=== PATIENT | male | born 1955 | race African-American/Black ===

== ENCOUNTER 2019-01-01 15:09 | Emergency (ER) | payer BC ==
[~2019-01-01] VITALS: Ht 177.8 cm; Wt 88.0 kg
[~2019-01-01 15:09] MED LIST: AMLO5TAB88; METO-396
[2019-01-01] MEDS ORDERED: SODIUM CHLORIDE 0.9% 1,000 ML IV ONE ×3 (20:20→20:30)
[2019-01-01 21:03] LABS: BASOPHILS % 0.7 % (0.0-2.0); EOSINOPHILS % 3.9 % (0.0-5.0); HEMATOCRIT. 44.8 % (42.0-52.0); HEMOGLOBIN. 15.3 g/dL (14.0-18.0); LYMPHOCYTES % 27.4 % (20.0-50.0); MEAN CORPUSCULAR HEMOGLOBIN 30.2 pg (28.0-32.0); MEAN CORPUSCULAR VOLUME 88.2 fL (80.0-94.0); PLATELET 349 x1000/uL (130-400); RED BLOOD CELL COUNT 5.07 mill/uL (4.7-6.1); RED CELL DISTRIBUTION WIDTH 13.1 % (11.6-14.6)
[2019-01-01 21:05] LABS: CHLORIDE 95 mEq/L (98-107)
[2019-01-01] MEDS ORDERED: METFORMIN HCL 500MG TABLET PO ONE (21:15)
[2019-01-01 22:39] VITALS: BP 156/67
== END 2019-01-01 23:33 | disposition home or self-care (01) ==
LOC: ER 15:09
DX: E11.65 Type 2 diabetes mellitus with hyperglycemia (principal); Z79.84 Long term (current) use of oral hypoglycemic drugs
CPT/HCPCS: 36415; 80053; 82962; 83036; 85025; 96360; 96361; 99283; J7030; Z7610

== ENCOUNTER → 2019-05-14 | Outpatient (CLI) | payer BC ==
[2019-05-14 09:43] LABS: CHLORIDE 102 mEq/L (98-107)
== END | disposition home or self-care (01) ==
LOC: LAB 08:41
PROVIDERS: ATTEND Internal Medicine
DX: Z11.59 Encounter for screening for other viral diseases (principal); Z12.11 Encounter for screening for malignant neoplasm of colon; E11.69 Type 2 diabetes mellitus with other specified complication; I10 Essential (primary) hypertension
CPT/HCPCS: 36415; 83036; 86803

== ENCOUNTER 2019-08-06 19:25 | Inpatient (IN) | payer BC ==
[~2019-08-06] VITALS: Ht 177.8 cm; Wt 93.0 kg
[2019-08-06 21:47] LABS: BASOPHILS % 0.9 % (0.0-2.0); EOSINOPHILS % 11.1 % (0.0-5.0); HEMATOCRIT. 38.8 % (42.0-52.0); HEMOGLOBIN. 12.9 g/dL (14.0-18.0); LYMPHOCYTES % 29.1 % (20.0-50.0); MEAN CORPUSCULAR HEMOGLOBIN 29.8 pg (28.0-32.0); MEAN CORPUSCULAR VOLUME 89.7 fL (80.0-94.0); MEAN PLATELET VOLUME 8.2 fl (7.4-10.4); MONOCYTES % 11.2 % (2.0-8.0); NEUTROPHILS % 47.7 % (40.0-76.0); PLATELET 277 x1000/uL (130-400); RED BLOOD CELL COUNT 4.32 mill/uL (4.7-6.1); RED CELL DISTRIBUTION WIDTH 15.3 % (11.6-14.6)
[2019-08-06 21:51] LABS: CHLORIDE 110 mEq/L (98-107)
[2019-08-06] MEDS ORDERED: MAGNESIUM/ALUMINUM HYDROXIDE/SIMETHICONE 30ML UDC PO PRN (23:00)
[2019-08-06] MEDS ORDERED: NITROGLYCERIN 0.4MG TABLET SL SL PRN (23:00)
[2019-08-06] MEDS ORDERED: GUAIFENESIN 200MG/10ML SUGAR FREE UDC PO PRN (23:00)
[2019-08-06] MEDS ORDERED: KETOROLAC 15MG/ML VIAL IV PRN (23:00)
[2019-08-06] MEDS ORDERED: CLONIDINE 0.1MG TABLET PO PRN (23:00)
[2019-08-06] MEDS ORDERED: ONDANSETRON HCL 4MG/2ML INJ IV PRN (23:00)
[2019-08-06] MEDS ORDERED: ACETAMINOPHEN 325MG TABLET PO PRN (23:00)
[2019-08-06] MEDS ORDERED: DOCUSATE SODIUM 100MG CAPSULE PO PRN (23:00)
[2019-08-06] MEDS ORDERED: IPRATROPIUM/ALBUTEROL 0.5-3(2.5)MG/3ML NEB NEB PRN (23:00)
[2019-08-06] MEDS ORDERED: LORAZEPAM 0.5MG TABLET PO PRN (23:00)
[2019-08-06 23:42] LABS: FOLIC ACID (FOLATE) SERUM 15.6 ng/mL (>5.38)
[2019-08-07 06:31] LABS: CREATINE KINASE 122 IU/L (39-308)
[2019-08-07 06:32] LABS: CREATINE KINASE MB FRACTION < 1.0 ng/mL (0.5-3.6)
[2019-08-07] MEDS: INSULIN LISPRO 100 UNITS/ML SUBCUT SCH ×4 (08:20→20:28)
[2019-08-07] MEDS: BLOOD SUGAR DIAGNOSTIC STRIP TEST SCH ×4 (09:00→20:27)
[2019-08-07] MEDS ORDERED: AMLODIPINE 10MG TABLET PO SCH (09:00)
[2019-08-07] MEDS ORDERED: FAMOTIDINE 20MG TABLET PO NR (09:00)
[2019-08-07] MEDS ORDERED: ASPIRIN 325MG EC TABLET PO NR (09:00)
[2019-08-07] MEDS ORDERED: METOPROLOL TARTRATE 25MG TABLET PO SCH (09:00)
[2019-08-07] MEDS ORDERED: ENOXAPARIN 30MG/0.3ML SYR SUBCUT NR (09:15)
[2019-08-07 14:00] VITALS: BP 138/72
[2019-08-07 16:05] VITALS: BP 136/57
[2019-08-07] MEDS ORDERED: METF-815 MT (16:49)
[2019-08-07] MEDS ORDERED: DEXTROSE 50% WATER 50ML SYRINGE IV PRN (17:00)
[2019-08-07] MEDS: AMLODIPINE 10MG TABLET PO SCH (17:00)
[2019-08-07 18:12] LABS: CREATINE KINASE 101 IU/L (39-308)
[2019-08-07 18:13] LABS: CREATINE KINASE MB FRACTION < 1.0 ng/mL (0.5-3.6)
[2019-08-07 20:00] VITALS: BP 146/80
[2019-08-07] MEDS: METOPROLOL TARTRATE 25MG TABLET PO SCH (20:27)
[2019-08-07] MEDS: FAMOTIDINE 20MG TABLET PO SCH (20:34)
[2019-08-07] MEDS ORDERED: ENOXAPARIN 30MG/0.3ML SYR SUBCUT SCH (21:00)
[2019-08-07] MEDS ORDERED: ZOLPIDEM TARTRATE 5MG TABLET PO PRN (21:00)
[2019-08-08] VITALS: BP 131/61
[2019-08-08 04:00] VITALS: BP 139/80
[2019-08-08] MEDS: BLOOD SUGAR DIAGNOSTIC STRIP TEST SCH ×4 (06:10→20:42)
[2019-08-08] MEDS: INSULIN LISPRO 100 UNITS/ML SUBCUT SCH ×4 (06:15→20:49)
[2019-08-08 08:00] VITALS: BP 158/84
[2019-08-08] MEDS: METOPROLOL TARTRATE 25MG TABLET PO SCH ×2 (08:42→20:45)
[2019-08-08] MEDS: AMLODIPINE 10MG TABLET PO SCH (08:42)
[2019-08-08] MEDS ORDERED: ASPIRIN 325MG EC TABLET PO SCH (09:00)
[2019-08-08] MEDS ORDERED: ENOXAPARIN 40MG/0.4ML SYR SUBCUT SCH (09:00)
[2019-08-08] MEDS: FAMOTIDINE 20MG TABLET PO SCH ×2 (10:07→20:46)
[2019-08-08] MEDS ORDERED: REGADENOSON 0.4 MG/5 ML IV NR (10:45)
[2019-08-08 12:00] VITALS: BP 114/58
[2019-08-08] MEDS: LOSARTAN POTASSIUM 50 MG TABLET PO SCH (12:51)
[2019-08-08 16:00] VITALS: BP 123/60
[2019-08-08 20:00] VITALS: BP 122/56
[2019-08-09] VITALS (11 sets, daily range): BP systolic 108–157; BP diastolic 46–90
[2019-08-09] MEDS: BLOOD SUGAR DIAGNOSTIC STRIP TEST SCH ×4 (06:38→23:05)
[2019-08-09] MEDS: INSULIN LISPRO 100 UNITS/ML SUBCUT SCH ×4 (07:12→21:00)
[2019-08-09] MEDS: METOPROLOL TARTRATE 25MG TABLET PO SCH ×2 (09:00→23:25)
[2019-08-09] MEDS: AMLODIPINE 10MG TABLET PO SCH (09:00)
[2019-08-09] MEDS ORDERED: REGADENOSON 0.4 MG/5 ML IV ONE (09:03)
[2019-08-09] MEDS ORDERED: NITROGLYCERIN 50MCG/ML 10ML VIAL (CATH LAB) IV ONE (10:31)
[2019-08-09] MEDS ORDERED: HEPARIN SODIUM 1,000 UNIT/1ML VIAL IV ONE (10:31)
[2019-08-09] MEDS ORDERED: NICARDIPINE 100MCG/ML 10ML VIAL (CATH LAB) IV ONE (10:31)
[2019-08-09] MEDS ORDERED: ATROPINE SULFATE 1MG/10ML SYR IV PRN (10:45)
[2019-08-09] MEDS ORDERED: ACETAMINOPHEN 325MG TABLET PO PRN (10:45)
[2019-08-09] MEDS ORDERED: MIDAZOLAM HCL 2 MG/2 ML VIAL ONE (10:58)
[2019-08-09] MEDS ORDERED: FENTANYL CITRATE/PF 50MCG/ML 2ML VIAL ONE (10:58)
[2019-08-09] MEDS ORDERED: LIDOCAINE HCL 1% 20ML VIAL (Pyxis) INJ ONE (11:16)
[2019-08-09] MEDS ORDERED: IODIXANOL 320MG/ML 100 ML BOTTLE IV ONE (11:16)
[2019-08-09] MEDS: LOSARTAN POTASSIUM 50 MG TABLET PO SCH (11:58)
[2019-08-09] MEDS: ASPIRIN 81MG EC TABLET PO SCH (11:58)
[2019-08-09] MEDS: FAMOTIDINE 20MG TABLET PO SCH ×2 (11:58→23:25)
[2019-08-09] MEDS ORDERED: ALPRAZOLAM 0.25 MG TABLET PO PRN (12:45)
[2019-08-09] MEDS ORDERED: NITROGLYCERIN 0.4MG TABLET SL SL PRN (12:45)
[2019-08-09 15:48] LABS: CHLORIDE 109 mEq/L (98-107)
[2019-08-09 15:51] LABS: PARTIAL THROMBOPLASTIN TIME 28.7 sec (23.4-31.0); PROTHROMBIN TIME 10.5 sec (9.6-11.0)
[2019-08-09] MEDS ORDERED: EPOETIN ALFA 10000UNITS/ML VIAL IV NR (18:00)
[2019-08-09 20:08] LABS: CLARITY URINE CLEAR (CLEAR); COLOR URINE YELLOW (YELLOW); KETONES URINE NEGATIVE (NEGATIVE); LEUKOCYTE ESTERASE URINE NEGATIVE (NEGATIVE); NITRITE URINE NEGATIVE (NEGATIVE); OCCULT BLOOD URINE NEGATIVE (NEGATIVE); PROTEIN URINE NEGATIVE (NEGATIVE); SPECIFIC GRAVITY URINE 1.025 (1.005-1.030); UROBILINOGEN URINE 0.2 E.U./dL (0.2-1.0)
[2019-08-09] MEDS ORDERED: DOCUSATE SODIUM 100MG CAPSULE PO SCH ×2 (21:00→23:30)
[2019-08-09] MEDS ORDERED: ASCORBIC ACID 500 MG TABLET PO SCH (21:00)
[2019-08-09] MEDS ORDERED: BISACODYL 10MG SUPP PR PRN (21:00)
[2019-08-09] MEDS ORDERED: DIPHENHYDRAMINE 25MG CAPSULE PO PRN (21:00)
[2019-08-09] MEDS ORDERED: CHLORHEXIDINE GLUCONATE 4% EXTERNAL USE TOP SCH (21:00)
[2019-08-09] MEDS ORDERED: ATORVASTATIN CALCIUM 40MG TABLET PO SCH (21:00)
[2019-08-09] MEDS: ALLOPURINOL 300 MG TABLET PO SCH (23:26)
[2019-08-10] VITALS (67 sets, daily range): BP systolic 53–299; BP diastolic 29–298
[2019-08-10] MEDS ORDERED: HEPARIN 1000 UNITS/ML 10ML ONE ×5 (05:45→08:38)
[2019-08-10] MEDS ORDERED: THROMBIN (BOVINE) 5000 UNITS/VIAL TOP ONE (05:47)
[2019-08-10] MEDS ORDERED: BACITRACIN 15GM TUBE TOP ONE (05:47)
[2019-08-10] MEDS ORDERED: SKIN ADHESIVE 0.7 GM EA TOP ONE (05:48)
[2019-08-10] MEDS ORDERED: BACITRACIN 50,000 UNITS/VIAL ONE (05:48)
[2019-08-10] MEDS: ALLOPURINOL 300 MG TABLET PO SCH (05:49)
[2019-08-10] MEDS ORDERED: CHLORHEXIDINE GLUCONATE 4% EXTERNAL USE TOP NR (06:00)
[2019-08-10] MEDS ORDERED: AMINOCAPROIC ACID 10,000 MG in SODIUM CHLORIDE 0.9% 460 ML IV PRN (06:00)
[2019-08-10] MEDS ORDERED: DEL NIDO ELECTROLYTE-S(PH 7.4) 1,000 ML IV PRN ×2 (06:00)
[2019-08-10] MEDS ORDERED: DOPAMINE 400MG/250ML PREMIX 250 ML IV PRN (06:00)
[2019-08-10] MEDS ORDERED: PAPAVERINE HCL 180MG in SODIUM CHLORIDE 0.9% 24ML IV PRN (06:00)
[2019-08-10] MEDS ORDERED: NOREPINEPHRINE 4 MG in DEXT 5% WATER 246 ML IV PRN (06:00)
[2019-08-10] MEDS ORDERED: DILTIAZEM HCL 5MG/ML 25ML VIAL IV PRN (06:00)
[2019-08-10] MEDS ORDERED: NICARDIPINE 40MG/200ML PREMIX 200 ML IV PRN (06:00)
[2019-08-10] MEDS ORDERED: CEFAZOLIN 2,000 MG in DEXT 5% WATER 100 ML IV SCH (06:00)
[2019-08-10] MEDS ORDERED: EPINEPHRINE 4 MG in DEXT 5% WATER 246 ML IV PRN (06:00)
[2019-08-10] MEDS ORDERED: PHENYLEPHRINE 10 MG in DEXT 5% WATER 249 ML IV PRN (06:00)
[2019-08-10] MEDS ORDERED: INSULIN REGULAR (DRIP) 100 UNITS in SODIUM CHLORIDE 0.9% 99 ML IV PRN ×2 (06:00→13:30)
[2019-08-10] MEDS ORDERED: ACETAMINOPHEN 500MG TABLET PO NR (06:00)
[2019-08-10] MEDS ORDERED: DOBUTAMINE 250MG PREMIX 250 ML IV PRN (06:00)
[2019-08-10] MEDS: BLOOD SUGAR DIAGNOSTIC STRIP TEST SCH ×13 (06:07→23:14)
[2019-08-10] MEDS ORDERED: DEXMEDETOMIDINE 400 MCG/100 ML 100 ML IV ONE (06:15)
[2019-08-10] MEDS ORDERED: MIDAZOLAM HCL 2 MG/2 ML VIAL ONE ×2 (06:55→08:32)
[2019-08-10] MEDS ORDERED: FENTANYL CITRATE/PF 50MCG/ML 5ML VIAL ONE ×2 (06:56→08:01)
[2019-08-10] MEDS ORDERED: PHENYLEPHRINE HCL 10 MG/ML 1ML (IV VIAL) IV ONE ×2 (07:02→07:17)
[2019-08-10] MEDS ORDERED: PROPOFOL 200MG/20ML VIAL IV ONE ×2 (07:02→07:59)
[2019-08-10] MEDS ORDERED: ESMOLOL HCL 10MG/ML 10ML VIAL IV ONE (07:02)
[2019-08-10] MEDS ORDERED: ETOMIDATE 2MG/ML 10ML VIAL IV ONE (07:06)
[2019-08-10] MEDS ORDERED: ROCURONIUM BROMIDE 10MG/ML VIAL 5ML IV ONE ×2 (07:06→08:39)
[2019-08-10] MEDS ORDERED: SODIUM CHLORIDE 0.9% 10ML VIAL ONE (07:06)
[2019-08-10] MEDS ORDERED: MAGNESIUM SULFATE 5GM/10ML VIAL IV ONE ×2 (07:16→08:02)
[2019-08-10] MEDS ORDERED: ALBUMIN HUMAN 25GM/100ML (25%) IV ONE (07:17)
[2019-08-10] MEDS ORDERED: CALCIUM CHLORIDE 1GM/10ML SYR IV ONE ×2 (07:17→08:43)
[2019-08-10] MEDS ORDERED: LIDOCAINE HCL 2% 5ML SYRINGE IV ONE (07:18)
[2019-08-10] MEDS ORDERED: POTASSIUM CHLORIDE 40MEQ/20ML INJ IV ONE (07:19)
[2019-08-10] MEDS ORDERED: SODIUM BICARBONATE 8.4% 1 MEQ/ML 50ML SYR IV ONE ×2 (07:21→11:15)
[2019-08-10] MEDS ORDERED: CEFAZOLIN SODIUM 1000MG/VIAL ONE (07:57)
[2019-08-10 08:00] LABS: BASOPHILS % 0.7 % (0.0-2.0); EOSINOPHILS % 9.9 % (0.0-5.0); LYMPHOCYTES % 31.8 % (20.0-50.0); MEAN CORPUSCULAR HEMOGLOBIN 29.5 pg (28.0-32.0); MEAN CORPUSCULAR VOLUME 90.5 fL (80.0-94.0); MEAN PLATELET VOLUME 8.9 fl (7.4-10.4); MONOCYTES % 9.2 % (2.0-8.0); NEUTROPHILS % 48.4 % (40.0-76.0); PLATELET 303 x1000/uL (130-400); RED BLOOD CELL COUNT 5.08 mill/uL (4.7-6.1); RED CELL DISTRIBUTION WIDTH 15.3 % (11.6-14.6)
[2019-08-10] MEDS ORDERED: FUROSEMIDE 100MG/10ML VIAL ONE (08:00)
[2019-08-10 08:14] LABS: CHLORIDE 107 mEq/L (98-107)
[2019-08-10] MEDS ORDERED: LABETALOL HCL 5MG/ML VIAL 20ML IV ONE (08:38)
[2019-08-10] MEDS ORDERED: SEVOFLURANE 250 ML LIQUID INH ONE (08:43)
[2019-08-10] MEDS ORDERED: METOCLOPRAMIDE HCL 10MG/2ML VIAL ONE (09:47)
[2019-08-10] MEDS ORDERED: ONDANSETRON HCL 4MG/2ML INJ ONE (09:47)
[2019-08-10] MEDS ORDERED: NEOSTIGMINE METHYLSULFATE 1MG/ML 10 ML VIAL ONE (10:01)
[2019-08-10] MEDS ORDERED: KETOROLAC 30MG/ML VIAL ONE (10:41)
[2019-08-10] MEDS ORDERED: DEXT 5%/0.45% NACL 1000ML 1,000 ML IV SCH (10:59)
[2019-08-10] MEDS ORDERED: SODIUM CHLORIDE 0.9% 500 ML IV PRN (10:59)
[2019-08-10] MEDS ORDERED: ALBUMIN HUMAN 12.5G/250ML (5%) IV PRN (11:00)
[2019-08-10] MEDS ORDERED: MAGNESIUM 1 G PREMIX 100 ML IV PRN (11:00)
[2019-08-10] MEDS ORDERED: ACETAMINOPHEN 325MG TABLET PO PRN (11:00)
[2019-08-10] MEDS ORDERED: ONDANSETRON HCL 4MG/2ML INJ IV PRN (11:00)
[2019-08-10] MEDS ORDERED: MAGNESIUM SULFATE 3 GM in DEXT 5% WATER 100 ML IV PRN (11:00)
[2019-08-10] MEDS ORDERED: EPINEPHRINE 1 MG in DEXT 5% WATER 249 ML IV SCH (11:00)
[2019-08-10] MEDS ORDERED: ONDANSETRON HCL 4MG TABLET PO PRN (11:00)
[2019-08-10] MEDS ORDERED: CALCIUM CHLORIDE 3,000 MG in DEXT 5% WATER 250 ML IV PRN (11:00)
[2019-08-10] MEDS ORDERED: ALBUMIN HUMAN 25GM/100ML (25%) IV PRN (11:00)
[2019-08-10] MEDS ORDERED: MORPHINE SULFATE 2 MG/ML CPJ (NOT FOR IM USE) IV PRN (11:00)
[2019-08-10] MEDS ORDERED: OXYCODONE HCL/ACETAMINOPHEN 5/325MG TABLET PO PRN (11:00)
[2019-08-10] MEDS ORDERED: ALBUMIN HUMAN 12.5G/250ML (5%) IV ONE ×2 (11:02→11:03)
[2019-08-10] MEDS ORDERED: MORPHINE SULFATE 4 MG/ML CPJ (NOT FOR IM USE) IV PRN (11:45)
[2019-08-10] MEDS ORDERED: MAGNESIUM 2 G PREMIX 50 ML IV SCH (12:00)
[2019-08-10] MEDS: IPRATROPIUM/ALBUTEROL 0.5-3(2.5)MG/3ML NEB HHN SCH ×4 (12:00→23:56)
[2019-08-10] MEDS: MAGNESIUM HYDROXIDE 400MG/5ML 30ML UDC PO SCH ×4 (12:00→23:24)
[2019-08-10] MEDS ORDERED: KETOROLAC 15MG/ML VIAL IV SCH (12:00)
[2019-08-10] MEDS ORDERED: INSULIN REGULAR (DRIP) 100 UNITS in SODIUM CHLORIDE 0.9% 99 ML IV SCH (12:12)
[2019-08-10] MEDS ORDERED: DEXTROSE 50% WATER 50ML SYRINGE IV PRN ×2 (12:15)
[2019-08-10 12:17] LABS: BG BASE EXCESS -3.4 mmol/L (-2.0-2.0); BG CARBOXYHEMOGLOBIN 0.5 % (0.5-1.5); BG DEOXYHEMOGLOBIN 1.9 % (0.0-5.0); BG FRACTION INSPIRED OXYGEN 60; BG HCO3 ACT 23.1 mmol/L (22.0-26.0); BG METHEMOGLOBIN 0.3 % (0.0-1.5); BG OXYGEN SATURATION 98.1 % (92.0-98.5); BG OXYHEMOGLOBIN 97.3 % (94.0-97.0); BG PCO2 46.8 mmHg (35.0-45.0); BG PH 7.311 (7.350-7.450); BG PO2 129.9 mmHg (75.0-100.0); BG SAMPLE SITE A-LINE; BG TOTAL HEMOGLOBIN 14.3 g/dL (12.0-18.0); BG VENT MODE MASK - SIMPLE
[2019-08-10 12:22] LABS: BASOPHILS % 0.4 % (0.0-2.0); EOSINOPHILS % 1.2 % (0.0-5.0); HEMATOCRIT. 40.9 % (42.0-52.0); HEMOGLOBIN. 13.5 g/dL (14.0-18.0); LYMPHOCYTES % 14.3 % (20.0-50.0); MEAN CORPUSCULAR HEMOGLOBIN 29.6 pg (28.0-32.0); MEAN CORPUSCULAR VOLUME 89.9 fL (80.0-94.0); MEAN PLATELET VOLUME 7.6 fl (7.4-10.4); MONOCYTES % 8.2 % (2.0-8.0); NEUTROPHILS % 75.9 % (40.0-76.0); PLATELET 294 x1000/uL (130-400); RED BLOOD CELL COUNT 4.55 mill/uL (4.7-6.1)
[2019-08-10 12:32] LABS: INR 1.1; PARTIAL THROMBOPLASTIN TIME 26.5 sec (23.4-31.0); PROTHROMBIN TIME 11.2 sec (9.6-11.0)
[2019-08-10] MEDS ORDERED: FLUMAZENIL 0.1 MG/ML 5ML VIAL IV ONE (12:33)
[2019-08-10 12:37] LABS: CHLORIDE 108 mEq/L (98-107)
[2019-08-10] MEDS ORDERED: KCL 10MEQ/50ML PREMIX 150 ML IV PRN (13:00)
[2019-08-10] MEDS ORDERED: KCL 10MEQ/50ML PREMIX 100 ML IV PRN (13:00)
[2019-08-10] MEDS: AMIODARONE HCL 900 MG in DEXT 5% WATER 482 ML IV PRN (13:06)
[2019-08-10] MEDS: KCL 10MEQ/50ML PREMIX 200 ML IV PRN ×2 (13:09→15:09)
[2019-08-10] MEDS: DOPAMINE 400MG/250ML PREMIX 250 ML IV SCH (13:22)
[2019-08-10] MEDS ORDERED: ALBUMIN HUMAN 12.5G/250ML (5%) IV NR (13:30)
[2019-08-10] MEDS: CEFAZOLIN 1000MG PREMIX 50 ML IV SCH ×2 (14:00→20:57)
[2019-08-10] MEDS: KETOROLAC 15MG/ML VIAL IV SCH ×2 (16:03→20:57)
[2019-08-10] MEDS: BACITRACIN 15GM TUBE TOP SCH (17:00)
[2019-08-10 17:20] LABS: CHLORIDE 109 mEq/L (98-107)
[2019-08-10] MEDS: DOCUSATE SODIUM 100MG CAPSULE PO SCH (17:22)
[2019-08-10 17:24] LABS: INR 1.1; PROTHROMBIN TIME 10.8 sec (9.6-11.0)
[2019-08-10] MEDS: MAGNESIUM 2 G PREMIX 50 ML IV PRN ×2 (17:28→22:46)
[2019-08-10 17:30] LABS: HEMATOCRIT 36.4 % (42.0-52.0); HEMOGLOBIN 11.9 g/dL (14.0-18.0); MEAN CORPUSCULAR HEMOGLOBIN 29.5 pg (28.0-32.0); PLATELET 260 x1000/uL (130-400); RED BLOOD CELL COUNT 4.05 mill/uL (4.7-6.1); RED CELL DISTRIBUTION WIDTH 14.8 % (11.6-14.6)
[2019-08-10] MEDS: CLOPIDOGREL 75MG TABLET PO SCH (17:35)
[2019-08-10] MEDS ORDERED: DEXT 5%/0.45% NACL 1000ML 1,000 ML IV ONE (18:00)
[2019-08-10] MEDS ORDERED: KCL 10MEQ/50ML PREMIX 50 ML IV NR (18:15)
[2019-08-10] MEDS ORDERED: EPINEPHRINE 4 MG in SODIUM CHLORIDE 0.9% 246 ML IV PRN (18:30)
[2019-08-10 21:50] LABS: CHLORIDE 110 mEq/L (98-107)
[2019-08-10] MEDS: AMIODARONE HCL 200 MG TABLET PO SCH (22:17)
[2019-08-10] MEDS: ACETAMINOPHEN 325MG TABLET PO PRN (23:25)
[2019-08-11] VITALS (59 sets, daily range): BP systolic 98–237; BP diastolic 47–208
[2019-08-11] MEDS: BLOOD SUGAR DIAGNOSTIC STRIP TEST SCH ×14 (00:01→20:38)
[2019-08-11] MEDS: MAGNESIUM HYDROXIDE 400MG/5ML 30ML UDC PO SCH ×5 (03:59→21:04)
[2019-08-11] MEDS: ACETAMINOPHEN 325MG TABLET PO PRN ×2 (04:00→17:40)
[2019-08-11] MEDS: IPRATROPIUM/ALBUTEROL 0.5-3(2.5)MG/3ML NEB HHN SCH ×5 (04:19→20:28)
[2019-08-11] MEDS: KETOROLAC 15MG/ML VIAL IV SCH ×2 (04:43→09:47)
[2019-08-11] MEDS: DOPAMINE 400MG/250ML PREMIX 250 ML IV SCH (05:21)
[2019-08-11] MEDS: CEFAZOLIN 1000MG PREMIX 50 ML IV SCH (05:24)
[2019-08-11 06:05] LABS: BASOPHILS % 0.2 % (0.0-2.0); HEMATOCRIT. 36.9 % (42.0-52.0); HEMOGLOBIN. 12.3 g/dL (14.0-18.0); LYMPHOCYTES % 12.2 % (20.0-50.0); MEAN CORPUSCULAR HEMOGLOBIN 29.6 pg (28.0-32.0); MEAN PLATELET VOLUME 8.4 fl (7.4-10.4); MONOCYTES % 11.2 % (2.0-8.0); NEUTROPHILS % 76.4 % (40.0-76.0); PLATELET 249 x1000/uL (130-400); RED BLOOD CELL COUNT 4.15 mill/uL (4.7-6.1); RED CELL DISTRIBUTION WIDTH 15.1 % (11.6-14.6)
[2019-08-11 06:29] LABS: CHLORIDE 107 mEq/L (98-107)
[2019-08-11] MEDS: AMIODARONE HCL 200 MG TABLET PO SCH ×3 (08:26→21:04)
[2019-08-11] MEDS: ATORVASTATIN CALCIUM 40MG TABLET PO SCH (08:26)
[2019-08-11] MEDS: CLOPIDOGREL 75MG TABLET PO SCH (08:27)
[2019-08-11] MEDS: DOCUSATE SODIUM 100MG CAPSULE PO SCH ×2 (08:27→16:15)
[2019-08-11] MEDS: CARVEDILOL 3.125 MG TABLET PO SCH ×2 (08:27→21:04)
[2019-08-11] MEDS: BACITRACIN 15GM TUBE TOP SCH ×2 (08:28→16:15)
[2019-08-11] MEDS: ASPIRIN 81MG EC TABLET PO SCH (08:32)
[2019-08-11] MEDS ORDERED: FAMOTIDINE 20MG/2ML VIAL IV SCH (09:00)
[2019-08-11] MEDS: AMIODARONE HCL 900 MG in DEXT 5% WATER 482 ML IV PRN (11:16)
[2019-08-11] MEDS ORDERED: INSULIN GLARGINE UD 100 UNITS/ML SYR SUBCUT SCH (13:00)
[2019-08-11] MEDS: INSULIN LISPRO 100 UNITS/ML SUBCUT SCH ×2 (16:54→21:00)
[2019-08-11] MEDS ORDERED: SODIUM CHLORIDE 0.45% 1,000 ML IV SCH (19:00)
[2019-08-12] VITALS (25 sets, daily range): BP systolic 105–156; BP diastolic 46–88
[2019-08-12] MEDS: IPRATROPIUM/ALBUTEROL 0.5-3(2.5)MG/3ML NEB HHN SCH ×6 (00:18→21:48)
[2019-08-12] MEDS: MAGNESIUM HYDROXIDE 400MG/5ML 30ML UDC PO SCH ×2 (00:29→04:00)
[2019-08-12] MEDS: AMIODARONE HCL 200 MG TABLET PO SCH ×3 (06:55→21:11)
[2019-08-12] MEDS: BLOOD SUGAR DIAGNOSTIC STRIP TEST SCH ×4 (07:50→21:16)
[2019-08-12] MEDS: INSULIN LISPRO 100 UNITS/ML SUBCUT SCH ×4 (07:53→21:12)
[2019-08-12] MEDS: MORPHINE SULFATE 2 MG/ML CPJ (NOT FOR IM USE) IV PRN ×2 (07:53→21:17)
[2019-08-12 08:04] LABS: BASOPHILS % 0.4 % (0.0-2.0); EOSINOPHILS % 0.3 % (0.0-5.0); HEMATOCRIT. 37.3 % (42.0-52.0); HEMOGLOBIN. 12.3 g/dL (14.0-18.0); LYMPHOCYTES % 11.2 % (20.0-50.0); MEAN PLATELET VOLUME 8.4 fl (7.4-10.4); MONOCYTES % 9.2 % (2.0-8.0); NEUTROPHILS % 78.9 % (40.0-76.0); PLATELET 223 x1000/uL (130-400); RED CELL DISTRIBUTION WIDTH 15.8 % (11.6-14.6)
[2019-08-12 08:23] LABS: CHLORIDE 108 mEq/L (98-107)
[2019-08-12] MEDS ORDERED: FUROSEMIDE 40MG/4ML VIAL IVP SCH (09:00)
[2019-08-12] MEDS ORDERED: MAGNESIUM 1 G PREMIX 100 ML IV SCH (09:00)
[2019-08-12] MEDS: AMLODIPINE 2.5MG TABLET PO SCH ×2 (09:00→21:12)
[2019-08-12] MEDS: DOCUSATE SODIUM 100MG CAPSULE PO SCH ×2 (09:04→17:49)
[2019-08-12] MEDS: ASPIRIN 81MG EC TABLET PO SCH (09:04)
[2019-08-12] MEDS: ATORVASTATIN CALCIUM 40MG TABLET PO SCH (09:04)
[2019-08-12] MEDS: CLOPIDOGREL 75MG TABLET PO SCH (09:04)
[2019-08-12] MEDS: FAMOTIDINE 20MG TABLET PO SCH ×2 (09:04→21:12)
[2019-08-12] MEDS: CARVEDILOL 3.125 MG TABLET PO SCH ×2 (09:05→21:12)
[2019-08-12] MEDS: BACITRACIN 15GM TUBE TOP SCH ×2 (09:05→17:49)
[2019-08-12] MEDS ORDERED: AMIODARONE HCL 200 MG TABLET PO SCH (14:00)
[2019-08-13] VITALS (19 sets, daily range): BP systolic 114–146; BP diastolic 63–85
[2019-08-13] MEDS: IPRATROPIUM/ALBUTEROL 0.5-3(2.5)MG/3ML NEB HHN SCH ×5 (01:25→16:00)
[2019-08-13] MEDS: AMIODARONE HCL 200 MG TABLET PO SCH ×2 (06:10→14:20)
[2019-08-13 06:44] LABS: BASOPHILS % 0.6 % (0.0-2.0); EOSINOPHILS % 3.7 % (0.0-5.0); HEMATOCRIT. 37.8 % (42.0-52.0); HEMOGLOBIN. 12.5 g/dL (14.0-18.0); LYMPHOCYTES % 19.3 % (20.0-50.0); MEAN CORPUSCULAR HEMOGLOBIN 29.7 pg (28.0-32.0); MEAN CORPUSCULAR VOLUME 89.9 fL (80.0-94.0); MEAN PLATELET VOLUME 8.3 fl (7.4-10.4); MONOCYTES % 9.7 % (2.0-8.0); NEUTROPHILS % 66.7 % (40.0-76.0); PLATELET 251 x1000/uL (130-400); RED BLOOD CELL COUNT 4.21 mill/uL (4.7-6.1); RED CELL DISTRIBUTION WIDTH 15.4 % (11.6-14.6)
[2019-08-13 06:55] LABS: CHLORIDE 108 mEq/L (98-107)
[2019-08-13] MEDS: INSULIN LISPRO 100 UNITS/ML SUBCUT SCH ×2 (07:57→12:42)
[2019-08-13] MEDS: BLOOD SUGAR DIAGNOSTIC STRIP TEST SCH ×2 (07:57→12:42)
[2019-08-13] MEDS: CLOPIDOGREL 75MG TABLET PO SCH (07:58)
[2019-08-13] MEDS: CARVEDILOL 3.125 MG TABLET PO SCH (07:58)
[2019-08-13] MEDS: ATORVASTATIN CALCIUM 40MG TABLET PO SCH (07:58)
[2019-08-13] MEDS: FAMOTIDINE 20MG TABLET PO SCH (07:58)
[2019-08-13] MEDS: AMLODIPINE 2.5MG TABLET PO SCH (07:59)
[2019-08-13] MEDS: ASPIRIN 81MG EC TABLET PO SCH (07:59)
[2019-08-13] MEDS: DOCUSATE SODIUM 100MG CAPSULE PO SCH (08:03)
[2019-08-13] MEDS: BACITRACIN 15GM TUBE TOP SCH (09:00)
[2019-08-13] MEDS ORDERED: MAGNESIUM 2 G PREMIX 50 ML IV SCH (10:00)
[2019-08-13] MEDS ORDERED: ATOR80TA MT (13:19)
[2019-08-13] MEDS ORDERED: CLOP75TA4 PO (13:20)
[2019-08-13] MEDS ORDERED: ASPI-1158 PO (13:23)
[2019-08-13] MEDS ORDERED: AMLO2.5T2 PO ×2 (13:24→13:26)
[2019-08-13] MEDS ORDERED: COR3 MT (13:27)
[2019-08-13] MEDS ORDERED: AMI2 MT (13:28)
== END 2019-08-13 15:40 | disposition home health service (06) | DRG 233 ==
LOC: ER 19:25 → 5WST 22:51 → EDBEDREQTM 22:53 → EDBEDREQ 22:53 → SUPCPDRO 08-07 11:18 → ENRESERV 08-07 14:32 → 5WST 08-07 16:53 → 3WST 08-09 11:10 → CVICU 08-10 06:36
PROVIDERS: ADMIT Internal Medicine; ATTEND Internal Medicine
PROC: 4A023N7 Measurement of Cardiac Sampling and Pressure, Left Heart, Percutaneous Approach (ICD-10-PCS; 2019-08-09)
PROC: B2111ZZ Fluoroscopy of Multiple Coronary Arteries using Low Osmolar Contrast (ICD-10-PCS; 2019-08-09)
PROC: B2151ZZ Fluoroscopy of Left Heart using Low Osmolar Contrast (ICD-10-PCS; 2019-08-09)
PROC: 02100Z9 Bypass Coronary Artery, One Artery from Left Internal Mammary, Open Approach (ICD-10-PCS; principal; 2019-08-10)
PROC: 021309W Bypass Coronary Artery, Four or More Arteries from Aorta with Autologous Venous Tissue, Open Approach (ICD-10-PCS; 2019-08-10)
PROC: 06BQ4ZZ Excision of Left Saphenous Vein, Percutaneous Endoscopic Approach (ICD-10-PCS; 2019-08-10)
PROC: 30233N1 Transfusion of Nonautologous Red Blood Cells into Peripheral Vein, Percutaneous Approach (ICD-10-PCS; 2019-08-10)
DX: I25.10 Atherosclerotic heart disease of native coronary artery without angina pectoris (principal); I49.01 Ventricular fibrillation; I97.190 Other postprocedural cardiac functional disturbances following cardiac surgery; I47.2 Ventricular tachycardia; I97.120 Postprocedural cardiac arrest following cardiac surgery; R07.89 Other chest pain; D64.9 Anemia, unspecified; E11.9 Type 2 diabetes mellitus without complications; I10 Essential (primary) hypertension; I48.91 Unspecified atrial fibrillation; E78.00 Pure hypercholesterolemia, unspecified; E78.5 Hyperlipidemia, unspecified; I25.2 Old myocardial infarction; Z79.4 Long term (current) use of insulin; Z79.899 Other long term (current) drug therapy
CPT/HCPCS: 36415; 36600; 71045; 80048; 80053; 80061; 81003; 82375; 82550; 82553; 82607; 82746; 82805; 82962; 83036; 83540; 83550; 83735; 83880; 84484; 85025; 85027; 85347; 85520; 86850; 86900; 86920; 93005; 93017; 93306; 93458; 93880; 93970; 94640; 97110; 97116; 97162; 97166; 97530; 97535; 99291; A9500; C1725; C1729; C1751; C1758; C1769; C1887; C1893; J0690; J0885; J1265; J1644; J1650; J1815; J1885; J1940; J2250; J2270; J2370; J2405; J2704; J2710; J2765; J2785; J3010; J3475; J3480; J3490; J7050; J7060; J7620; L3908; P9016; P9041; P9047; Q9957; Q9967

== ENCOUNTER → 2020-12-02 | Outpatient (CLI) | payer BC ==
[~2020-12-02] MED LIST changes: +AMI2 MT; +AMLO2.5T2 PO; -AMLO5TAB88; +ASPI-1406 PO; +ATOR80TA MT; +CLOP-31 PO; +COR3 MT; +METF-873 MT; -METO-396
[2020-12-02 10:40] LABS: CHLORIDE 107 mEq/L (98-107)
[2020-12-02 10:48] LABS: LDL CHOLESTEROL 147 mg/dL (5-100)
[2020-12-02 10:49] LABS: HDL CHOLESTEROL 40 mg/dL (40-59)
== END | disposition home or self-care (01) ==
LOC: LAB 10:14
PROVIDERS: ATTEND Specialist
DX: I10 Essential (primary) hypertension (principal)
CPT/HCPCS: 36415; 80053; 80061

== ENCOUNTER → 2021-10-16 | Outpatient (CLI) | payer BC ==
[2021-10-16 09:52] LABS: BASOPHILS % 1.1 % (0.0-2.0); EOSINOPHILS % 12.2 % (0.0-5.0); HEMOGLOBIN. 14.3 g/dL (14.0-18.0); LYMPHOCYTES % 24.1 % (20.0-50.0); MEAN CORPUSCULAR HEMOGLOBIN 29.5 pg (28.0-32.0); MEAN CORPUSCULAR VOLUME 88.6 fL (80.0-94.0); MEAN PLATELET VOLUME 8.2 fl (7.4-10.4); MONOCYTES % 7.8 % (2.0-8.0); NEUTROPHILS % 54.8 % (40.0-76.0); PLATELET 290 x1000/uL (130-400); RED BLOOD CELL COUNT 4.85 mill/uL (4.7-6.1); RED CELL DISTRIBUTION WIDTH 14.1 % (11.6-14.6)
[2021-10-16 09:55] LABS: CHLORIDE 107 mEq/L (98-107)
[2021-10-16 10:02] LABS: LDL CHOLESTEROL 80 mg/dL (5-100)
[2021-10-16 10:04] LABS: HDL CHOLESTEROL 34 mg/dL (40-59)
[2021-10-17 06:07] LABS: *CREATININE RANDOM URINE 159.6 mg/dL (Not Estab.); MICROALBUMIN RANDOM URINE 3.5 ug/mL (Not Estab.)
== END | disposition home or self-care (01) ==
LOC: LAB 09:11
PROVIDERS: ATTEND Nurse Practitioner Family
DX: I12.9 Hypertensive chronic kidney disease with stage 1 through stage 4 chronic kidney disease, or unspecified chronic kidney disease (principal); E11.22 Type 2 diabetes mellitus with diabetic chronic kidney disease; E11.69 Type 2 diabetes mellitus with other specified complication; N18.32 Chronic kidney disease, stage 3b; I25.10 Atherosclerotic heart disease of native coronary artery without angina pectoris
CPT/HCPCS: 36415; 80053; 80061; 82043; 82570; 83036; 84153; 85025; G0103